=== PATIENT | female | born 1980 | race Caucasian/White ===

== ENCOUNTER 2020-08-13 12:43 | Emergency (ER) | payer OTHER, SELFPAY ==
[2020-08-13 13:06] VITALS: BP 148/88; PULSE 72; RESP 16; TEMP 36.1; O2SAT 100
--- NOTE | 2020-08-13 13:39 | ED.GENADULT ---
HPI - General Adult General Chief complaint: Skin/Abscess/Foreign Body <Mary Jo Tay PA-C - Last Filed: 08/13/20 14:58> Stated complaint: Labia Abcess <Mary Jo Tay PA-C - Last Filed: 08/13/20 14:58> Time Seen by Provider: 08/13/20 13:11 <Mary Jo Tay PA-C - Last Filed: 08/13/20 14:58> Source: patient <ARTURO Figueroa Last Filed: 08/13/20 14:58> Mode of arrival: ambulatory <ARTURO Figueroa Last Filed: 08/13/20 14:58> Limitations: no limitations <ARTURO Figueroa Last Filed: 08/13/20 14:58> History of Present Illness HPI narrative: Patient presents with chief complaint of pain to the right labia is increased over the past 2 weeks. Patient states that it presented after she shaved the area. She states she has been taking warm bath soaks trying to get the area to open and drain however she has been unsuccessful. Patient has not seen with her primary care. Patient states that she had 1 of these areas many years ago and had to have it drained in the emergency department. Patient denies testing positive for MRSA. Patient denies any other symptoms or concerns. <Mary Jo Tay PA-C - Last Filed: 08/13/20 14:58> Related Data Allergies/adverse reactions: Allergies Allergy/AdvReac Type Severity Reaction Status Date / Time bupropion [From Wellbutrin] AdvReac Nausea and Verified 08/13/20 13:16 Vomiting <Mary Jo Tay PA-C - Last Filed: 08/13/20 14:58> Review of Systems Review of Systems: Narrative: CONSTITUTIONAL: Denies fever, chills, or sweats. EYES: Denies visual changes, redness, or discharge. ENT: Denies rhinorrhea, congestion, sore throat, or otalgia. CARDIOVASCULAR: Denies chest pain, palpitations, or edema. RESPIRATORY: Denies cough or dyspnea. GASTROINTESTINAL: Denies abdominal pain, nausea, vomiting, or diarrhea. GENITOURINARY: Denies dysuria or hematuria. SKIN: Reports abscess denies rash or itching. MUSCULOSKELETAL: Denies back pain, joint pain, or myalgia. NEUROLOGIC: Denies headache, numbness, dizziness, or weakness. PSYCHIATRIC: Denies anxiety or depression. <Mary Jo Tay PA-C - Last Filed: 08/13/20 14:58> PMFSH Social History Social History: Social History Gender identity (if verbalized by the patient): Female <Mary Jo Tay PA-C - Last Filed: 08/13/20 14:58> Exam Narrative: Exam Narrative: GENERAL: Well-appearing, well-nourished, and in no acute distress. HEAD: Normocephalic, atraumatic. EYES: PERRLA and EOMI. NECK: Supple. No adenopathy or masses. CHEST: Clear to auscultation. No respiratory distress. No wheezes rales or rhonchi HEART: Regular rate and rhythm. No murmur heard. Normal peripheral pulses. ABDOMEN: Soft, nontender, nondistended, normal active bowel sounds. EXTREMITIES: Normal range of motion. No edema. SKIN: Approximately 2 cm abscess to the right labia. Minimal surrounding erythema. Area is nontender to palpation. Warm, dry, no rash. NEURO: No focal deficits. Alert and oriented x3. PSYCH: Normal mood and affect. <Mary Jo Tay PA-C - Last Filed: 08/13/20 14:58> Course Vital Signs Vital signs: Vital Signs Temperature 97 F L 08/13/20 13:06 Pulse Rate 72 08/13/20 13:06 Respiratory Rate 16 08/13/20 13:06 Blood Pressure 148/88 H 08/13/20 13:06 Pulse Oximetry 100 08/13/20 13:06 Temperature 97 F L 08/13/20 13:06 Pulse Rate 72 08/13/20 13:06 Respiratory Rate 16 08/13/20 13:06 Blood Pressure 148/88 H 08/13/20 13:06 Pulse Oximetry 100 08/13/20 13:06 <Mary Jo Tay PA-C - Last Filed: 08/13/20 14:58> Vital Signs Temperature 97 F L 08/13/20 13:06 Pulse Rate 72 08/13/20 13:06 Respiratory Rate 16 08/13/20 13:06 Blood Pressure 148/88 H 08/13/20 13:06 Pulse Oximetry 100 08/13/20 13:06 Temperature 97 F L 08/13/20 13:06 Pulse Rate 72 08/13/20 13:06 Respiratory Rate 16 08/13/20 13:06 Blood Pressure 148/88 H 08/13
== END 2020-08-13 15:08 | disposition home or self-care (01) ==
PROVIDERS: Emergency Provider General Practice; PCP Nurse Practitioner Family
DX: N76.4 Abscess of vulva (principal)
CPT/HCPCS: 56405; 99283

== ENCOUNTER 2022-08-15 07:50 | Outpatient (CLI) | payer OTHER, SELFPAY ==
--- NOTE | ~2022-08-15 | MM_ITS ---
EXAMINATION: MM screening carmelita BI w edgar HISTORY: Screening TECHNIQUE: Craniocaudal and mediolateral oblique 3-D tomosynthesis images were obtained and synthetic 2-D images were generated. CAD analysis was submitted and interpreted. COMPARISON: No prior mammogram is available for comparison at this institution. BREAST PARENCHYMAL COMPOSITION: There are scattered areas of fibroglandular density. FINDINGS: There is no evidence of suspicious mass, calcification, or architectural distortion to sugg est malignancy in either breast. There has been no suspicious interval change. IMPRESSION: 1. No mammographic evidence of malignancy. 2. Recommend routine screening mammography in one year. BI-RADS Category 1: Negative Reviewed, dictated and finalized at location A. AD ASSOCIATE
== END 2022-08-15 07:51 | disposition home or self-care (01) ==
LOC: ANHIMG 07:51
PROVIDERS: PCP Nurse Practitioner Family; Visit Provider Student in an Organized Health Care Education/Training Program
DX: Z12.31 Encounter for screening mammogram for malignant neoplasm of breast (principal)
CPT/HCPCS: 77063; 77067

== ENCOUNTER 2023-11-28 16:08 | Outpatient (CLI) | payer OTHER, SELFPAY ==
--- NOTE | ~2023-11-28 | MM_ITS ---
EXAMINATION: MM screening carmelita BI w edgar HISTORY: Screening mammogram TECHNIQUE: Craniocaudal and mediolateral oblique 3-D tomosynthesis images were obtained and synthetic 2-D images were generated. CAD analysis was submitted and interpreted. COMPARISON: August 15, 2022 bilateral screening mammogram BREAST PARENCHYMAL COMPOSITION: The breasts are almost entirely fatty. FINDINGS: There is no evidence of suspicious mass, calcification, or architectural distortion to sugg est malignancy in either breast. There has been no suspicious interval change. IMPRESSION: 1. No mammographic evidence of malignancy. 2. Recommend routine screening mammography in one year. BI-RADS Category 1: Negative Reviewed, dictated and finalized at location B.
== END 2023-11-28 16:09 | disposition home or self-care (01) ==
LOC: ANHIMG 16:10
PROVIDERS: PCP Nurse Practitioner Family; Visit Provider Student in an Organized Health Care Education/Training Program
DX: Z12.31 Encounter for screening mammogram for malignant neoplasm of breast (principal)
CPT/HCPCS: 77063; 77067

== ENCOUNTER 2025-04-02 07:08 | Outpatient (CLI) | payer OTHER, SELFPAY ==
--- NOTE | ~2025-04-02 | MM_ITS ---
EXAMINATION: MM screening carmelita BI w edgar HISTORY: Screening TECHNIQUE: Craniocaudal and mediolateral oblique 3-D tomosynthesis images were obtained and synthetic 2-D images were generated. CAD analysis was submitted and interpreted. COMPARISON: Comparison to multiple prior studies sequentially, with oldest reviewed study dated , 08/15/2022 BREAST PARENCHYMAL COMPOSITION: The breasts are almost entirely fatty. FINDINGS: There is no evidence of suspicious mass, calcification, or architectural distortion to suggest malignancy in either breast. IMPRESSION: 1. No mammographic evidence of malignancy. 2. Recommend routine screening mammography in one year. BI-RADS Category 1: Negative Reviewed, dictated and finalized at location B.
--- OUTSIDE RECORDS SUMMARY | 2025-04-02 07:13 | XMS_ITS | Clinical Summary ---
Author Organization [facility] Address [address] [place] [address] Care Team Providers Care Head Inspector Name Role Phone Castro, Viky NORMAN-BUILDING ENGINEER Primary Care Provider [phone] Richard Vieyra MD Unavailable [phone] Sadi Grant MD Unavailable Source Comments [facility],non-owned Affiliates and Associated Physician Practices is amultiple site organization consisting of ambulatory clinics and hospital sitesin [place], [place], [place] and [place]. This disclosure is being madepursuant to the Care Everywhere program and may not contain all information available regarding this patient. Last updated 18.[facility] Allergies No known active allergies Medications * Be aware that medications may not be up to date on this document. Alwaysverify current medications with the patient. albuterol HFA (PROVENTIL;VENTOLIN;RI OAIR) 108 (90 Base) MCG/ACT inhaler Inhale 2 (two) puffs by mouth every 6 hours as needed Active vitamin D3-cholecalciferol (CHOLECALCIFEROL) 25 MCG (1000 UNITS) tablet Take 1 (one) tablet by mouth once daily Active metoprolol succinate XL 24hr (TOPROL XL) 100 MG tablet Take 1 (one) tablet by mouth at bedtime Active furosemide (LASIX) 20 MG tablet Take 1 (one) tablet by mouth once daily Active levothyroxine (SYNTHROID) 25 MCG tablet Take 0.5 (one-half) tablet by mouth daily before breakfast Active famotidine (PEPCID) 40 MG tablet Take 1 (one) tablet by mouth once daily Active spironolactone (Aldactone) 50 MG tablet Take 1 (one) tablet by mouth once daily Active lidocaine (Lidoderm) 5 % patch APPLY 1 PATCH BY TOPICAL ROUTE ONCE DAILY (MAY WEAR UP TO 12HOURS.) 023 Active omeprazole (PriLOSEC) 40 MG capsule Take 1 (one) capsule by mouth once daily 024 Active ibuprofen (Motrin) 600 MG tablet Take 1 (one) tablet by mouth every 6 hours as needed Active atorvastatin (Lipitor) 20 MG tablet Take 1 (one) tablet by mouth at bedtime Active nitrofurantoin monohyd macro crystals (Macrobid) 100 MG capsuleIndications:Acu te cystitis without hematuria Take 1 (one) capsule by mouth 2 times daily with morning and evening meal 10 capsule Active adalimumab (Humira) 40 MG/0.4ML injectionIndications:P ositive OSWALD (antinuclear antibody),HLA B27 (HLA B27 positive),Seronegative spondyloarthropathy Inject 0.4 mL subcutaneously every 14 days 2.4 mL 3 025 Active Adalimumab-adbm (Cyltezo, 2 Pen,) 40 MG/0.4ML AJKTIndications:HLA B27 (HLA B27 positive) Inject 40 mg subcutaneously every 14 days 1 Each 11 025 2025 Active adalimumab (Humira) 40 MG/0.4ML injectionIndications:P ositive OSWALD (antinuclear antibody),HLA B27 (HLA B27 positive),Seronegative spondyloarthropathy Inject 0.4 mL subcutaneously every 14 days 2.4 mL 3 024 2024 Disconti nued(Reo rder) adalimumab (Humira) 40 MG/0.4ML injectionIndications:P ositive OSWALD (antinuclear antibody),HLA B27 (HLA B27 positive),Seronegative spondyloarthropathy Inject 0.4 mL subcutaneously every 14 days 2.4 mL 3 025 2024 Disconti nued(Reo rder) Active Problems Problem Noted Date Diagnosed Date Hypothyroidism 08/04/2019 Easy bruising 02/11/2019 Factor 5 Leiden mutation, heterozygous 9 Primary thrombophilia 01/01/2019 Family history of thrombosis in first degree rel ative 12/29/2018 Venous insufficiency 10/07/2017 Leg pain, right 08/26/2017 Depression 10/04/2016 Essential (primary) hypertension 10/04/2016 Hypercoagulable state 10/04/2016 Obesity 10/04/2016 Sleep apnea, unspecified 10/04/2016 Pain in wrist 07/03/2015 Fracture of phalanx of finger 06/26/2015 Compression fracture of L1 lumbar vertebra 07/30 Encounters Date Type Department Care Team Description 03/24/2025 Telephone [facility] - Rheumatology [address] [place] [address], [place] [address] Edgardo Hale MD Medication Prior Auth Request (Cyltezo) from Last 3 Months Immunizations Immunization Administration Dates Next Due INFLUENZA VACCINE 06/04/2019 INFLUENZA VACCINE, QUADR. (F LUZONE; FLULAVAL; FLUARIX; AFLURIA QUADRIVALENT; 6MO+), 0.5 ML (IIV4) 04/15/2023 iNFLUENZA VACCINE, RECOM-SORTO, QUADR. (FLUBLOCK QUADRIVALENT; 18Y+) (RIV4) 06/18/2022 Family History Medical History Relation Name Comments Scleroderma Maternal Grandmother Arthritis - Rheumatoid Mother Other Mother factor 5 with b lood clots Thyroid Disease Mother Relation Name Status Comments Maternal Grandmother Mother Social History Tobacco Use Types Packs/Day Years Used Date Smoking Tobacco: Never Smokeless Tobacco: Never Tobacco Cessation:Counseling Given: Not Answered Alcohol Use Standard Drinks/Week Comments Never 0 (1 standard drink = 0.6 oz pur e alcohol) AUDIT-C Answer Date Recorded Frequency of Alcohol Consumption Never 07/16/2019 Average Number of Drinks Not on file Frequency of Binge Drinking Not on file 08/2019 PHQ-2 Answer Date Recorded Patient Health Questionnaire-2 Score 0 12/16/2023 Comments No Sex and Gender Information Value Date Recorded Sex Assigned at Not on file Legal Sex Female 6:29 AM KNOT TYING OPERATOR Gender Identity Not on file Sexual Orientation Not on file Last Filed Vital Signs Vital Sign Reading Time Taken Comments Blood Pressure 132/81 06/15/2024 2:46 PM KNOT TYING OPERATOR Pulse 75 06/15/2024 2:46 PM KNOT TYING OPERATOR Temperature 36.4 C (97.5 F) 06/15/2024 2:46 PM KNOT TYING OPERATOR Respiratory Rate - - Oxygen Saturation 99% 12/16/2023 1:00 PM CDT Inhaled Oxygen Concentration - - Weight 123.4 kg (272 lb) 06/15/2024 2:46 PM KNOT TYING OPERATOR Height 157.5 cm (5' 2.01) 06/15/2024 2:46 PM CS T Body Mass Index 49.74 06/15/2024 2:46 PM KNOT TYING OPERATOR Plan of Treatment Upcoming Encounters Date Type Department Care Team (Late st Contact Info) Description 06/14/2025 1:30 PM KNOT TYING OPERATOR Office Visit [facility] - Rheumatology [address] [place] [address], [place] [address] Edgardo Hale MD [address] [place] [address] [place] [address] Health Maintenance Due Date Last Done Comments MAMMOGRAM 1981 HIV SCREENING 1996 DTAP/TDAP/TD VACCINES (1 - Tdap) 2000 HEPATITIS B VACCINE (1 of 3 - 19+ 3-dose series) 2000 HPV VACCINE (1 - 3-dose SCDM series) 2008 DEPRESSION SCREENING 07/15/2024 12/16/2023, 04/15/2023, 04/15/2023, Additional history exists COVID-19 VACCINE ( season) 2025 07/20/2021, 11/29/2020, 11/08/2020 INFLUENZA VACCINE (#1) 2025 3, 06/18/2022, 07/20/2021, Additional history exists SCREENING FOR DIABETES 06/15/2027 4, 12/16/2023, 08/16/2023, Additional history exists ZOSTER VACCINE (1 of 2) 2031 HEPATITIS C SCREENING Completed 06/15/2024 , 08/16/2023, 06/18/2022, Additional history exists HIB VACCINE Aged Out No longer eligi ble based on patient's age to complete this topic MENINGOCOCCAL (Group B) VACCINE SHARED DECISION-MAKING Aged Out No longer eligible based on patient's age to complete this topic MENINGOCOCCAL GROUPS A/C/Y/W VACCINE Aged Out No longer eligible based on patient's age to complete this topic PNEUMOCOCCAL VACCINE Aged Out No long er eligible based on patient's age to complete this topic Procedures Procedure Name Priority Date/Time Associated Diagnosis Comments COMPREHENSIVE METABOLIC PANEL Routine 06/15/2024 3:55 PM KNOT TYING OPERATOR HLA B27 (HLA B27 positive) Low back pain, unspecified back pain laterality, unspecified chronicity, unspecified whether sciatica present Therapeutic drug monitoring Chronic kidney disease, unspecified CKD stage Positive OSWALD (antinuclear antibody) HEPATITIS C ANTIBODY Routine 06/15/2024 3:55 PM KNOT TYING OPERATOR HLA B27 (HLA B27 positive) Low back pain, unspecified back pain laterality, unspecified chronicity, unspecified whether sciatica present Therapeutic drug monitoring Chronic kidney disease, unspecified CKD stage Positive OSWALD (antinuclear antibody) from Last 3 Months or Most Recently Relevant to Health Maintenance Results * (ABNORMAL) COMPREHENSIVE METABOLIC PANEL (06/15/2024 3:55 PM KNOT TYING OPERATOR) BUN 16 7 - 26 mg/dL 06/15/2024 4:32 PM [facility] Creatinine 1.07(H) 0.56 - 0.96 mg/dL 06/15/2024 4:32 PM [facility] Sodium 142 136 - 145 mmol/L 06/15/2024 4:32 PM [facility] Potassium 4.0 3.5 - 4.5 mmol/L 06/15/2024 4:32 PM [facility] Chloride 109(H) 98 - 107 mmol/L 06/15/2024 4:32 PM [facility] CO2 24 22 - 29 mmol/L 06/15/2024 4:32 PM [facility] Glucose 93 70 - 99 mg/dL 06/15/2024 4:32 PM [facility] Calcium 9.3 8.4 - 10.2 mg/dL 06/15/2024 4:32 PM [facility] Protein Total 7.5 6.0 - 8.3 g/dL 06/15/2024 4:32 PM [facility] Albumin 3.7 3.4 - 5.0 g/dL 06/15/2024 4:32 PM [facility] Bilirubin Total 0.5 0.2 - 1.2 mg/dL 06/15/2024 4:32 PM [facility] Alkaline Phosphatase 90 40 - 150 U/L 06/15/2024 4:32 PM [facility] ALT 45 5 - 55 U/L 06/15/2024 4:32 PM [facility] AST 31 5 - 34 U/L 06/15/2024 4:32 PM [facility] Anion Gap 9 6 - 16 06/15/2024 4:32 PM [facility] BUN/Creatinine Ratio 15 7 - 23 06/15/2024 4:32 PM [facility] Osmolality Calculated 295 275 - 295 mOsm/kg 06/15/2024 4:32 PM [facility] Albumin/Globulin Ratio 1.0(L) 1.1 - 2.3 06/15/2024 4:32 PM [facility] eGFR by CKD-EPI 66(L) >=90 mL/min/1.7 3 m2 06/15/2024 4:32 PM [facility] Blood BLOOD SPECIMEN / Unknown Lab Venipuncture / Unknown 06/15/2024 3:55 PM KNOT TYING OPERATOR 06/15/2024 4:06 PM [facility] Sadi Grant MD LAB - CHEMISTRY ORDERABLES Final Result [facility] [address] [place] [address], [facility] [phone] * HEPATITIS C ANTIBODY (06/15/2024 3:55 PM KNOT TYING OPERATOR) Hepatitis C Antibody Non-react angélica Non-reac tive 06/15/2024 4:45 PM [facility] Comment:Hepatitis C Antibody screen indicates no serologic evidence of past or current infection with Hepatitis C Virus. Patients with unexplained liver disease who are immunocompromised or suspected of having acute Hepatitis C infection may benefit from Nucleic Acid Test (KENYETTA) for Hepatitis C Viral RNA to confirm Hepatitis C status. Blood BLOOD SPECIMEN / Unknown Lab Venipuncture / Unknown 06/15/2024 3:55 PM KNOT TYING OPERATOR 06/15/2024 4:02 PM KNOT TYING OPERATOR Sadi Grant MD LAB - CHEMISTRY ORDERABLES Final Result [facility] [address] [place] [address], [facility] [phone] from Last 3 Months or Most Recently Relevant to Health Maintenance Insurance [facility] Care Teams Head Inspector Relationship Specialty Start Date End Date Viky Castro APRN-MARC [address] [place] [address] PCP - General 07/16/19 Richard Vieyra MD [address] [place] [address] [place] [address] Resident Rheumatology 04/15/23 Sadi Grant MD [address] [place] [address] Customer Account Executive Rheumatology 04/15/23
== END 2025-04-02 07:09 | disposition home or self-care (01) ==
LOC: ANHFOHIMG 07:09
PROVIDERS: PCP Nurse Practitioner Family; Visit Provider Student in an Organized Health Care Education/Training Program
DX: Z12.31 Encounter for screening mammogram for malignant neoplasm of breast (principal)
CPT/HCPCS: 77063; 77067